=== PATIENT | female | born 1955 | race Two or more races ===

== ENCOUNTER 2024-05-07 17:49 | Inpatient (IN) | payer OTHER, MEDICAID ==
[~2024-05-07] VITALS: Ht 157.5 cm; Wt 91.4 kg
[2024-05-07] MEDS ORDERED: DEXTROSE (50%) 50ML SYRG IV PRN (21:30)
[2024-05-07] MEDS ORDERED: ONDANSETRON HCL 4 MG/2 ML VIAL IV PRN (21:30)
[2024-05-07 22:00] VITALS: BP 175/56; PULSE 61; RESP 14; O2SAT 98
[2024-05-07] MEDS: ATORVASTATIN 20 MG TAB PO SCH (22:00)
[2024-05-07] MEDS: ACCU-CHEK COMFORT CURVE STRIP VI SCH (22:00)
[2024-05-07] MEDS: InsuLIN REG 1unit/0.01ml Soln (100units/ml) SC SCH (22:00)
[2024-05-07 22:30] VITALS: BP 188/117; PULSE 68; RESP 16; O2SAT 95
[2024-05-07] MEDS ORDERED: METOPROLOL TARTRATE 1MG/1ML-5ML VIAL IV PRN (22:30)
[2024-05-07] MEDS: hydrALAZINE HCL 20 MG/ML VL IV PRN (22:42)
[2024-05-07 22:52] VITALS: BP 148/53; PULSE 67; PULSE 83; RESP 12; RESP 25; TEMP 98.2; O2SAT 97; O2SAT 98
[2024-05-07 23:30] VITALS: BP 145/47; PULSE 68; RESP 17; O2SAT 97
[2024-05-08] VITALS (42 sets, daily range): BP systolic 123–172; BP diastolic 34–69; PULSE 45–89; RESP 11–20; TEMP 97.9–98.6; O2SAT 91–99
[2024-05-08 05:56] LABS: Basophils # (auto) 0.1 10 ^3/uL (0-0.2); Basophils % (auto) 0.5 % (0.0-2.0); Eosinophils # (auto) 0.2 10 ^3/uL (0-0.8); Eosinophils % (auto) 1.8 % (0.0-7.0); Hematocrit 37.7 % (36.0-46.0); Hemoglobin 12.9 g/dL (12.2-16.2); Lymphocytes # (auto) 2.5 10 ^3/uL (0.4-5.4); Lymphocytes % (auto) 23.9 % (10.0-50.0); Mean Corpuscular Hemoglobin 28.8 pg (28.0-32.0); Mean Corpuscular Hgb Conc. 34.1 g/dL (32.0-36.0); Mean Corpuscular Volume 84.3 fL (80.0-100.0); Monocytes # (auto) 0.8 10 ^3/uL (0-1.3); Monocytes % (auto) 7.4 % (0.0-12.0); Neutrophils % (auto) 66.4 % (37.0-80.0); Platelet Count (auto) 297 10^3/uL (140-450); Red Blood Cells 4.47 10^6/uL (4.0-5.20); Red Cell Distribution Width 13.5 % (11.8-14.3); White Blood Cell 10.5 10^3/uL (4.4-10.8)
[2024-05-08 06:06] LABS: Anion Gap 8 (5-15); Carbon Dioxide 24 mmol/L (20-30); Chloride 110 mmol/L (98-107); Potassium 3.9 mmol/L (3.5-5.1); Sodium 142 mmol/L (136-145)
[2024-05-08 06:07] LABS: Calcium 9.3 mg/dL (8.7-10.4)
[2024-05-08 06:12] LABS: BUN/Creatinine Ratio 21.4 (10.0-20.0); Blood Urea Nitrogen 28 mg/dL (9-23); Glucose 198 mg/dL (74-106)
[2024-05-08 06:15] LABS: INR 1.05 (0.9-1.15); Partial Thromboplastin Time 25.9 SEC (24.5-34.5); Prothrombin Time 11.1 sec (9.3-11.8)
[2024-05-08 06:16] LABS: Alanine Aminotransferase 43 U/L (7-40); Albumin 3.8 g/dL (3.2-4.8); Alkaline Phosphatase 94 U/L (46-116); Anion Gap 10 (5-15); Aspartate Aminotransferase 26 U/L (13-40); BUN/Creatinine Ratio 24.4 (10.0-20.0); Bilirubin, Total 0.4 mg/dL (0.2-1.0); Blood Urea Nitrogen 32 mg/dL (9-23); Calcium 9.4 mg/dL (8.7-10.4); Carbon Dioxide 23 mmol/L (20-30); Chloride 110 mmol/L (98-107); Glucose 195 mg/dL (74-106); Potassium 4.1 mmol/L (3.5-5.1); Sodium 143 mmol/L (136-145); Total Protein 6.1 g/dL (5.7-8.2)
[2024-05-08] MEDS: AMIODARONE HCL 200 MG TAB PO SCH (10:11)
[2024-05-08] MEDS: FAMOTIDINE 20 MG TAB PO SCH (10:11)
[2024-05-08] MEDS: ENOXAPARIN SOD 100 MG/1 ML SYRINGE SC SCH (10:12)
[2024-05-09] VITALS (30 sets, daily range): BP systolic 114–186; BP diastolic 31–75; PULSE 54–130; RESP 10–27; TEMP 97.9–98.4; O2SAT 92–100
[2024-05-09 05:17] LABS: Basophils # (auto) 0 10 ^3/uL (0-0.2); Basophils % (auto) 0.3 % (0.0-2.0); Eosinophils # (auto) 0.3 10 ^3/uL (0-0.8); Hematocrit 38.4 % (36.0-46.0); Hemoglobin 13.1 g/dL (12.2-16.2); Lymphocytes # (auto) 2.2 10 ^3/uL (0.4-5.4); Lymphocytes % (auto) 22.2 % (10.0-50.0); Mean Corpuscular Hemoglobin 28.9 pg (28.0-32.0); Mean Corpuscular Hgb Conc. 34.1 g/dL (32.0-36.0); Mean Corpuscular Volume 84.7 fL (80.0-100.0); Monocytes # (auto) 0.7 10 ^3/uL (0-1.3); Monocytes % (auto) 7.5 % (0.0-12.0); Neutrophils # (auto) 6.6 10 ^3/uL (1.6-8.6); Platelet Count (auto) 289 10^3/uL (140-450); Red Blood Cells 4.54 10^6/uL (4.0-5.20); Red Cell Distribution Width 13.7 % (11.8-14.3); White Blood Cell 9.8 10^3/uL (4.4-10.8)
[2024-05-09 05:22] LABS: Chloride 111 mmol/L (98-107); Potassium 4.1 mmol/L (3.5-5.1); Sodium 142 mmol/L (136-145)
[2024-05-09 05:23] LABS: Anion Gap 6 (5-15); Calcium 9.5 mg/dL (8.7-10.4); Carbon Dioxide 25 mmol/L (20-30)
[2024-05-09 05:28] LABS: BUN/Creatinine Ratio 21.5 (10.0-20.0); Blood Urea Nitrogen 28 mg/dL (9-23); Glucose 186 mg/dL (74-106)
[2024-05-09] MEDS: ACETAMINOPHEN 325 MG TAB PO PRN (11:13)
[2024-05-09] MEDS: METOPROLOL SUCCINATE XL 50 MG TAB PO ONE (11:13)
[2024-05-09 20:33] LABS: Urine Bacteria MANY /hpf (None Seen); Urine Blood Negative /uL (Negative); Urine Clarity Turbid (Clear); Urine Color Light-Yellow (Yellow); Urine Protein, UAD 1+ (Negative); Urine Specific Gravity 1.018 (1.001-1.035); Urine Urobilinogen Normal (Negative); Urine WBC 25 /hpf (0 - 5); Urine pH 5.5 (5.0-9.0)
[2024-05-09] MEDS: APIXABAN 5 MG TAB PO SCH (21:42)
[2024-05-09] MEDS: cefTRIAXone 1GM/50ML D5W 50 ML IV SCH (23:21)
[2024-05-10] VITALS (9 sets, daily range): BP systolic 130–152; BP diastolic 40–64; PULSE 55–70; RESP 15–20; TEMP 36.7; O2SAT 95–98
[2024-05-10 07:44] LABS: Basophils # (auto) 0 10 ^3/uL (0-0.2); Basophils % (auto) 0.4 % (0.0-2.0); Eosinophils # (auto) 0.2 10 ^3/uL (0-0.8); Eosinophils % (auto) 2.8 % (0.0-7.0); Hematocrit 36.1 % (36.0-46.0); Hemoglobin 12.1 g/dL (12.2-16.2); Lymphocytes # (auto) 1.9 10 ^3/uL (0.4-5.4); Lymphocytes % (auto) 23.6 % (10.0-50.0); Mean Corpuscular Hemoglobin 28.5 pg (28.0-32.0); Mean Corpuscular Hgb Conc. 33.5 g/dL (32.0-36.0); Monocytes # (auto) 0.7 10 ^3/uL (0-1.3); Monocytes % (auto) 8.7 % (0.0-12.0); Neutrophils # (auto) 5.3 10 ^3/uL (1.6-8.6); Neutrophils % (auto) 64.5 % (37.0-80.0); Platelet Count (auto) 270 10^3/uL (140-450); Red Blood Cells 4.25 10^6/uL (4.0-5.20); Red Cell Distribution Width 13.9 % (11.8-14.3); White Blood Cell 8.2 10^3/uL (4.4-10.8)
[2024-05-10 07:47] LABS: Chloride 110 mmol/L (98-107); Potassium 3.9 mmol/L (3.5-5.1); Sodium 141 mmol/L (136-145)
[2024-05-10 07:48] LABS: Anion Gap 8 (5-15); Calcium 9.5 mg/dL (8.7-10.4); Carbon Dioxide 23 mmol/L (20-30)
[2024-05-10 07:53] LABS: BUN/Creatinine Ratio 22.6 (10.0-20.0); Blood Urea Nitrogen 28 mg/dL (9-23); Glucose 157 mg/dL (74-106)
[2024-05-10] MEDS: METOPROLOL SUCCINATE XL 50 MG TAB PO SCH (09:57)
[2024-05-10] MEDS ORDERED: CEFD300C2 PO (15:38)
[2024-05-10] MEDS ORDERED: AMIO200T33 PO (15:38)
[2024-05-10] MEDS ORDERED: APIX5TAB PO (15:38)
[2024-05-10] MEDS ORDERED: METO25TA36 PO (15:38)
== END 2024-05-10 17:15 | disposition home health service (06) | DRG 309 ==
LOC: DOU IN ICU 21:40 → TELE-WESTW 05-10 00:40
PROVIDERS: ADMIT Hospitalist; ATTEND Hospitalist
DX: I48.20 Chronic atrial fibrillation, unspecified (principal); N39.0 Urinary tract infection, site not specified; I11.9 Hypertensive heart disease without heart failure; E11.9 Type 2 diabetes mellitus without complications; E78.5 Hyperlipidemia, unspecified; Z87.891 Personal history of nicotine dependence; Z79.84 Long term (current) use of oral hypoglycemic drugs
CPT/HCPCS: 36415; 80048; 80053; 81001; 82962; 84443; 84484; 85025; 85610; 85730; 87081; 87086; 93306; 97110; 97116; 97163; 97530; G0378; J1815